=== PATIENT | female | born 1980 | race Caucasian/White ===

== ENCOUNTER 2021-02-02 09:49 | Outpatient (CLI) | payer OTHER, SELFPAY ==
--- NOTE | ~2021-02-02 | XR_ITS ---
XR thoracic spine 2V DATE: 02/02/2021 10:49 INDICATION: History of intervertebral disc displacement in the lumbar region one year ago TECHNIQUE: AP, lateral, swimmer views COMPARISON: None FINDINGS: There is prominent degenerative disc disease at C4-5, C5-6, C6-7. There is mild levoscoliosis of the thoracic spine. There is mild degenerative spurring of the thoracic spine. No fracture or bone destruction of the thoracic spine. The thoracic pedicles are intact. No paraspina l soft tissue thickening. IMPRESSION: Degenerative disc disease of the mid and lower cervical spine Mild degenerative spurring of the thoracic spine Reviewed, dictated and finalized at location A.
--- NOTE | ~2021-02-02 | XR_ITS ---
XR lumbar spine 2-3V DATE: 02/02/2021 10:49 INDICATION: History of intervertebral disc placement, lumbar region one year ago TECHNIQUE: AP, lateral, coned lateral lumbosacral views COMPARISON: 07/10/2014 lumbar spine FINDINGS: There is slight dextroscoliosis. No fracture or bone destruction. The lumbar pedicles are intact. Mild degenerative disease is noted at L2-3 and L3-4. No spondylolisthesis. The sacroiliac joints are intact. IMPRESSION: Slight dextroscoliosis Mild degenerative disc disease from L2-3 and L3-4 Reviewed, dictated and finalized at location A.
== END 2021-02-02 09:50 | disposition home or self-care (01) ==
LOC: CHSIMG 09:52
PROVIDERS: PCP Nurse Practitioner Family; Visit Provider Nurse Practitioner Family
DX: M51.26 Other intervertebral disc displacement, lumbar region (principal); M51.24 Other intervertebral disc displacement, thoracic region
CPT/HCPCS: 72070; 72100

== ENCOUNTER 2022-09-26 10:29 | Outpatient (CLI) | payer OTHER, SELFPAY ==
[2022-09-26 10:39] LABS: Basophils Absolute Auto 0.04 K/mm3 (0.00-0.10); Basophils Percent Auto 0.5 % (0.0-1.0); Eosinophils Absolute Auto 0.06 K/mm3 (0.02-0.50); Eosinophils Percent Auto 0.7 % (1.0-6.0); Hematocrit 43.7 % (35.0-49.0); Hemoglobin 15.2 g/dL (12.0-15.0); Immature Granulocyte Absolute 0.01 K/mm3 (0.00-0.00); Immature Granulocyte Percent A 0.1 % (0.0-0.0); Lymphocytes Absolute Auto 4.26 K/mm3 (1.10-4.50); Lymphocytes Percent Auto 51.6 % (18.0-42.0); Mean Corpuscular HGB Conc 34.8 g/dL (32.0-36.0); Mean Corpuscular Hemoglobin 31.9 pg (27.0-31.0); Mean Corpuscular Volume 91.6 fL (78.0-102.0); Mean Platelet Volume 8.7 fl (9.2-11.8); Monocytes Absolute Auto 0.58 K/mm3 (0.10-0.90); Neutrophils Absolute Auto 3.3 K/mm3 (1.7-7.2); Neutrophils Percent Auto 40.1 % (50.0-70.0); Platelet Count Result 267 K/mm3 (150-420); Red Blood Count 4.77 M/mm3 (4.20-5.40); Red Cell Distribution Width 11.8 % (11.6-14.4); White Blood Count 8.3 K/mm3 (4.8-10.8)
[2022-09-26 11:16] LABS: Alanine Aminotransferase 21 U/L (14-59); Albumin Level 3.9 g/dL (3.4-5.0); Alkaline Phosphatase 60 U/L (46-116); Anion Gap 9 mmol/L (8-16); Aspartate Amino Transferase 17 U/L (15-37); Bilirubin,Total 0.2 mg/dL (0.00-1.00); Blood Urea Nitrogen 9 mg/dL (7-18); Calcium 8.7 mg/dL (8.5-10.1); Carbon Dioxide 27 mmol/L (21-32); Chloride 105 mmol/L (98-108); Estimated Glomerular Filt Rate > 60; Free T4 Free Thyroxine 0.92 ng/dL (0.76-1.46); Glucose 106 mg/dL (70-99); Osmolality Calculated 290 mOsm/kg (285-295); Potassium 3.8 mmol/L (3.5-5.1); Sodium 141 mmol/L (136-145); Thyroid Stimulating Hormone 1.82 uIU/mL (0.36-3.74); Total Protein 7.3 g/dL (6.4-8.2)
[2022-09-26 15:54] LABS: Hemoglobin A1C 5.2 % (<5.7)
== END 2022-09-26 10:30 | disposition home or self-care (01) ==
LOC: CHSLAB 10:30
PROVIDERS: PCP Nurse Practitioner Family; Visit Provider Nurse Practitioner Family
DX: R68.89 Other general symptoms and signs (principal); R63.5 Abnormal weight gain; R73.09 Other abnormal glucose
CPT/HCPCS: 36415; 80053; 83036; 84439; 84443; 85025

== ENCOUNTER 2024-06-02 20:45 | Emergency (ER) | payer OTHER, SELFPAY ==
--- NOTE | ~2024-06-02 | CT_ITS ---
EXAMINATION: CT abdomen pelvis wo con DATE: 06/02/2024 21:43 INDICATION: Left flank pain. TECHNIQUE: Computed tomography (CT) of the abdomen and pelvis was performed without intravenous contr ast. Automated exposure control and iterative reconstruction technique were employed. The dose-length product was 627.74 mGy-cm. COMPARISON: Abdomen ultrasound 09/16/2013 FINDINGS: The visualized portions of lung bases are clear without pneumonia or pleural effusion. The heart size is normal. No pericardial effusion. There is a 5.6 cm mass in right hepatic lobe. The gall bladder, spleen, pancreas, adrenal glands are normal. There is cortical thinning of right kidney. The re are cysts in left kidney measuring up to 2.8 cm. There are two 1 mm stones in left kidney. There a re no dilated loops of bowel. The appendix is normal. There are no pathologically enlarged lymph node s. There is physiologic fluid in the pelvis. There is mild lumbar spondylosis. IMPRESSION: 1. Small nonobstructing left kidney stones. 2. 5.6 cm liver mass, which may be benign or malignant. Abdomen MRI without and with contrast is maulik mmended. Reviewed, dictated and finalized at location A. IMPRESSION: 1. Small nonobstructing left kidney stones. 2. 5.6 cm liver mass, which may be benign or malignant. Abdomen MRI without and with contrast is recommended.
[2024-06-02 20:47] VITALS: BP 135/90; PULSE 83; RESP 18; TEMP 35.9; O2SAT 97
[2024-06-02 21:08] LABS: Add Urine Microscopic? NO; Appearance Urine Clear (Clear); Bilirubin Urine Negative (Negative); Blood Urine Negative (Negative); Color Urine Light Yellow (Yellow); Glucose Urine UA Negative (Negative); Ketones Urine Negative (Negative); Leukocyte Esterase Ur Negative LEU/UL (Negative); Nitrate Urine Negative (Negative); Protein Urine Negative (Negative); pH Urine 6.5 (5.0-8.0)
--- NOTE | 2024-06-02 21:09 | ED.GENADULT ---
HPI - General Adult General Chief complaint: Urogenital-Female Stated complaint: UTI SYMPTOMS History of Present Illness HPI narrative: 42 years old white female came to the emergency room with sudden onset left flank pain, dull aching, started 1-2 hours prior to arrival to the emergency room. Patient denies any fever, chills, nausea, vomiting, radiation of pain. 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 Patient report having history of urinary tract infection at least 3 times in the past with similar presentation. Usually does not have any urinary symptoms except flank pain. Patient is healthy otherwise does not take meds at home. Related Data Allergies Allergy/AdvReac Type Severity Reaction Status Date / Time No Known Allergies Allergy Verified 11/08/23 16:42 Review of Systems Review of Systems: All systems reviewed & are unremarkable except as noted in HPI and below PMFSH Past Medical History Medical History Obesity (BMI 30.0-34.9) Urolithiasis Social History Social History Smoking status: Never smoker Alcohol intake: current Alcohol use details: social Substance use: never Substance use type: does not use Lack of Transportation: No Lack of Food: Never True Current Housing: I Have Housing Concerned About Future Housing: No Difficulty Paying Gas/Electric Bills: No Difficulty Paying for Meds: No Currently Unemployed: No Education: High School Diploma/GED Living arrangements: with family Additional living arrangements comments: Occupation/Education: other Exam Narrative: General appearance: Well-developed, well-nourished Skin: Normal color Head: Normocephalic, nontraumatic Eyes: Clear conjunctiva ENT: Oropharynx normal, ears normal, nose normal Neck: Supple, nontender Chest and respiratory: Airway patent, no respiratory distress, no accessory muscle use Heart: Regular rate/rhythm Abdomen: Soft, nontender, no organomegaly, quiet bowel sounds , mild tenderness left paraspinous muscle , lumbar area, no rash or swelling or bruises Vascular: Normal peripheral pulses, normal capillary refill. Musculoskeletal: Normal range of motion, nontender back Neurologic: Alert and oriented ?3, TENNIS COACH is normal as tested, no gross motor deficit Course Vital Signs Vital signs: Vital Signs Temperature 35.9 C L 06/02/24 20:47 Pulse Rate 83 06/02/24 20:47 Respiratory Rate 18 06/02/24 20:47 Blood Pressure 135/90 06/02/24 20:47 Pulse Oximetry 97 06/02/24 20:47 Oxygen Delivery Room Air 06/02/24 20:47 Temperature 36.1 C L 06/02/24 21:44 Pulse Rate 74 06/02/24 21:44 Respiratory Rate 18 06/02/24 21:44 Blood Pressure 139/91 H 06/02/24 21:44 Pulse Oximetry 74 L 06/02/24 21:44 Oxygen Delivery Room Air 06/02/24 21:44 Medical Decision Making MDM Narrative Medical decision making narrative: differential diagnosis include muscle pain, urinary tract infection Vital Signs Vital Signs: Vital Signs Temperature 35.9 C L 06/02/24 20:47 Pulse Rate 83 06/02/24 20:47 Respiratory Rate 18 06/02/24 20:47 Blood Pressure 135/90 06/02/24 20:47 Pulse Oximetry 97 06/02/24 20:47 Oxygen Delivery Room Air 06/02/24 20:47 Temperature 36.1 C L 06/02/24 21:44 Pulse Rate 74 06/02/24 21:44 Respiratory Rate 18 06/02/24 21:44 Blood Pressure 139/91 H 06/02/24 21:44 Pulse Oximetry 74 L 06/02/24 21:44 Oxygen Delivery Room Air 06/02/24 21:44 Lab Data Labs: Lab Results 06/02/24 Range/Units 20:57 Urine Color Light yellow (Yellow) Urine
--- NOTE | 2024-06-02 21:38 | PC.NURSE ---
PT TO CT VIA XRAY STAFF.
[2024-06-02 21:44] VITALS: BP 139/91; PULSE 74; RESP 18; TEMP 36.1; O2SAT 74
[2024-06-02] MEDS: TAMSULOSIN HCL 0.4 MG CAPSULE PO (22:57)
[2024-06-02] MEDS: IBUPROFEN 600 MG TABLET PO (22:57)
--- NOTE | 2024-06-02 23:51 | PC.NURSE ---
pt resting per cot. informed of length of time for ct scan reading. voiced understanding. call perez in reach.
[2024-06-03 00:24] VITALS: BP 126/92; PULSE 83; RESP 18; TEMP 36.3; O2SAT 97
== END 2024-06-03 00:29 | disposition home or self-care (01) ==
PROVIDERS: Emergency Provider Emergency Medicine; PCP Nurse Practitioner Family
DX: R10.9 Unspecified abdominal pain (principal); R16.0 Hepatomegaly, not elsewhere classified
CPT/HCPCS: 74176; 81003; 99284; A9270

== ENCOUNTER 2024-06-14 10:17 | Outpatient (CLI) | payer OTHER, SELFPAY ==
[2024-06-14 10:38] LABS: Basophils Absolute Auto 0.06 K/mm3 (0.00-0.10); Basophils Percent Auto 1.1 % (0.0-1.0); Eosinophils Percent Auto 1.9 % (1.0-6.0); Hematocrit 45.1 % (35.0-49.0); Hemoglobin 15.6 g/dL (12.0-15.0); Immature Granulocyte Absolute 0.01 K/mm3 (0.00-0.00); Immature Granulocyte Percent A 0.2 % (0.0-0.0); Lymphocytes Absolute Auto 2.87 K/mm3 (1.10-4.50); Lymphocytes Percent Auto 53.1 % (18.0-42.0); Mean Corpuscular HGB Conc 34.6 g/dL (32-36); Mean Corpuscular Hemoglobin 31.7 pg (27.0-31.0); Mean Corpuscular Volume 91.7 fL (78.0-102.0); Mean Platelet Volume 8.6 fl (9.2-11.8); Monocytes Absolute Auto 0.36 K/mm3 (0.10-0.90); Monocytes Percent Auto 6.7 % (2.0-11.0); Platelet Count Result 234 K/mm3 (150-420); Red Blood Count 4.92 M/mm3 (4.20-5.40); Red Cell Distribution Width 11.6 % (11.6-14.4); White Blood Count 5.4 K/mm3 (4.8-10.8)
[2024-06-14 10:52] LABS: INR 0.9
[2024-06-14 11:03] LABS: Alanine Aminotransferase 19 U/L (14-59); Albumin Level 3.9 g/dL (3.4-5.0); Alkaline Phosphatase 60 U/L (46-116); Anion Gap 5 mmol/L (4-12); Aspartate Amino Transferase 15 U/L (15-37); Bilirubin,Total 0.2 mg/dL (0.00-1.00); Blood Urea Nitrogen 15 mg/dL (7-18); Calcium 8.9 mg/dL (8.5-10.1); Carbon Dioxide 31 mmol/L (21-32); Chloride 104 mmol/L (98-108); Cholesterol 164 mg/dL (0-200); Estimated Glomerular Filt Rate > 60; Glucose 92 mg/dL (70-99); HDL Direct 38 mg/dL (40-60); LDL Cholesterol Calculated 105 mg/dL (<130); Osmolality Calculated 290 mOsm/kg (285-295); Sodium 140 mmol/L (136-145); Total Protein 6.9 g/dL (6.4-8.2); Triglycerides 107 mg/dL (0-150)
[2024-06-14 11:38] LABS: Hemoglobin A1C 5.1 % (<5.7)
[2024-06-14 11:44] LABS: Thyroid Stimulating Hormone Reflex 1.15 u/IU/mL (0.36-3.74)
[2024-06-19 08:13] LABS: Hepatitis A Antibody IgM NON-REACTIVE (NON-REACTIVE); Hepatitis B Core Antibody NON-REACTIVE (NON-REACTIVE); Hepatitis B Surface Antigen NON-REACTIVE (NON-REACTIVE); Hepatitis C Virus Antibody NON-REACTIVE (NON-REACTIVE)
== END 2024-06-14 10:18 | disposition home or self-care (01) ==
LOC: CHSLAB 10:19
PROVIDERS: PCP Nurse Practitioner Family; Visit Provider Nurse Practitioner Family
DX: Z00.00 Encounter for general adult medical examination without abnormal findings (principal); R16.0 Hepatomegaly, not elsewhere classified
CPT/HCPCS: 36415; 80053; 80061; 80074; 83036; 84443; 85025; 85610

== ENCOUNTER 2024-12-06 08:43 | Outpatient (CLI) | payer MEDICARE, SELFPAY ==
--- NOTE | ~2024-12-06 | MMUS_ITS ---
EXAMINATION: MM diagnostic [place] BI w kia, US breast BI complete HISTORY: Abnormal tissue seen on recent MRI. TECHNIQUE: Additional 3-D tomosynthesis images of the breasts were performed and synthetic 2-D images were generated. CAD analysis was submitted and interpreted. High resolution bilateral complete breas t ultrasound was performed. COMPARISON: None BREAST PARENCHYMAL COMPOSITION: Dense: The breasts are extremely dense, which lowers the sensitivity of mammography. FINDINGS: MAMMOGRAPHIC FINDINGS: There are multiple masses in both breasts spread throughout the breasts, obscured by dense fibrogland ular tissue. There are no suspicious calcifications or architectural distortion. ULTRASOUND: Complete US of all 4 quadrants of the breast/s and retroareolar region was reviewed. Right breast: At 12:00 near the nipple there is a complex bilobed mass with low level internal echoes within a segment of the mass. The mass measures 2.4 x 1.8 x 1.3 cm. No internal vascularity. There i s posterior acoustic enhancement and parallel orientation. There are multiple cysts of the right naveed st. Left breast: There are multiple cysts of the left breast. No suspicious sonographic abnormalities in the left breast to suggest malignancy. IMPRESSION: 1. Complex partially cystic 2.4 cm right breast mass at 12:00 near the nipple. 2. Recommend ultrasound-guided aspiration. If fluid isn't not obtained with aspiration, recommend bio psy. BI-RADS category 4, suspicious findings. Reviewed, dictated and finalized at location L. ER OPERATOR PIN IMPRESSION: 1. Complex partially cystic 2.4 cm right breast mass at 12:00 near the nipple. 2. Recommend ultrasound-guided aspiration. If fluid isn't not obtained with asp iration, recommend biopsy. BI-RADS category 4, suspicious findings.
--- OUTSIDE RECORDS SUMMARY | 2024-12-06 09:12 | XMS_ITS | Patient Health Summary ---
Author Organization [facility] Address [address] [place] [address] Care Team Providers Care Actuarial Mathematician Name Role Phone Unavailable Primary Care Provider Unavailabl e Note from [facility],non-owned Affiliates and Associated Physician Practices is amultiple site organization consisting of ambulatory clinics and hospital sitesin [place], [place], [place] and [place]. This disclosure is being madepursuant to the Care Everywhere program and may not contain all information available regarding this patient. Last updated 18.[facility] Accredible Social History Tobacco Use Types Packs/Day Years Used Date Smoking Tobacco: Never Assessed Sex and Gender Information Value Date Recorded Sex Assigned at Not on file Gender Identity Not on file Sexual Orientation Not on file Procedures * IMAGING/RADIOLOGY/XRAY RESULTS ORDER(Performed 09/02/2009) Results * IMAGING/RADIOLOGY/XRAY RESULTS ORDER (09/02/2009 1:16 AM FLOOR STEWARD/STEWARDESS) Anatomical Region Laterality Modality Other Narrative 09/02/2009 1:16 AM FLOOR STEWARD/STEWARDESS Ordered by an unspecified provider. Transcriptions Document, Scanned - 08/25/2009 12:00 AM FLOOR STEWARD/STEWARDESS Scanned Document IMAGING
--- OUTSIDE RECORDS SUMMARY | 2024-12-06 09:12 | XMS_ITS | Referral Summary ---
Author Organization [facility] Address [address] [place] [address] Care Team Providers Care Washer Meat Name Role Phone Unavailable Primary Care Provider Unavailabl e Source Comments [facility],non-owned Affiliates and Associated Physician Practices is amultiple site organization consisting of ambulatory clinics and hospital sitesin [place], [place] and [place]. This disclosure is being madepursuant to the Care Everywhere program and may not contain all information available regarding this patient. Last updated 18.[facility] Social History Tobacco Use Types Packs/Day Years Used Date Smoking Tobacco: Never Assessed Sex and Gender Information Value Date Recorded Sex Assigned at Not on file Gender Identity Not on file Sexual Orientation Not on file Plan of Treatment Not on file
--- OUTSIDE RECORDS SUMMARY | 2024-12-06 09:12 | XMS_ITS | Clinical Summary ---
Author Organization [facility] Address [address] [place] [id number] Care Team Providers Care Pedicurist Name Role Phone Nickolas, Alana Genao NP Primary Care Provide r Allergies No known active allergies Medications No known medications Active Problems No known active problems Encounters Date Type Department Care Team Description 11/20/2024 Telephone [facility] Gastroenterology at [address] [place] [address] Kate Huddleston MA 11/14/2024 8:43 AM BOILER CONTROL TECHNICIAN - 11/14/2024 11:59 PM BOILER CONTROL TECHNICIAN Hospital Encounter [facility] [address] [place] [address] Liver lesion; Hepatomegaly Discharge Disposition: Discharge to home or self care 11/06/2024 Telephone [facility] Gastroenterology at [address] [place] [address] Kate Huddleston MA 11/05/2024 2:30 PM BOILER CONTROL TECHNICIAN Lab [address] Hepatomegaly; Liver lesion 11/05/2024 1:45 PM BOILER CONTROL TECHNICIAN Office Visit [facility] Gastroenterology at [address] [place] [address] Saumya Craft PA Liver lesion (Primary Dx); Hepatomegaly; Colon cancer screening from Last 3 Months Social History Tobacco Use Types Packs/Day Years Used Date Smoking Tobacco: Never Smokeless Tobacco: Never Tobacco Cessation:Counseling Given: Not Answered Comments Unknown Sex and Gender Information Value Date Recorded Sex Assigned at Not on file Legal Sex Female 2:12 PM CDT Gender Identity Not on file Sexual Orientation Not on file Obstetrics History Last Filed Vital Signs Vital Sign Reading Time Taken Comments Blood Pressure 130/87 11/05/2024 1:14 PM BOILER CONTROL TECHNICIAN Pulse 81 11/05/2024 1:14 PM BOILER CONTROL TECHNICIAN Temperature - - Respiratory Rate - - Oxygen Saturation 97% 11/05/2024 1:14 PM BOILER CONTROL TECHNICIAN Inhaled Oxygen Concentration - - Weight 88 kg (194 lb) 11/05/2024 1:14 PM BOILER CONTROL TECHNICIAN Height - - Body Mass Index - - Plan of Treatment Health Maintenance Due Date Last Done Comments Breast Cancer Screening-Mammogram 1979 Cervical Cancer Screening 1979 Colon Cancer Screening-Colonoscopy 1979 Depression Screening 1979 DTaP/Tdap/Td Vaccine (1 - Tdap) 1990 Hepatitis B Screening 1997 Regular Well Visit/Exam 18-64 1997 Influenza Vaccine (#1) 2024 Hepatitis C Screening Completed 11/05/2024 HPV Vaccines Aged Out No longer eligi ble based on patient's age to complete this topic Pneumococcal vaccine <65 Aged Out No longer eligible based on patient's age to complete this topic Procedures Procedure Name Priority Date/Time Associated Diagnosis Comments MRI ABDOMEN LIVER W WO CONTRAST Schedule ROJELIO, Read Routine (Patient lives out of area) 11/14/2024 9:29 AM BOILER CONTROL TECHNICIAN Liver lesion Hepatomegaly [id number] IN, TUMOR MARKER Routine 11/05/2024 1:57 PM BOILER CONTROL TECHNICIAN Hepatomegaly Liver lesion CEA Routine 11/05/2024 1:57 PM BOILER CONTROL TECHNICIAN Hepatomegaly Liver lesion CANCER ANTIGEN 19-9 Routine 11/05/2024 1:57 PM BOILER CONTROL TECHNICIAN Hepatomegaly Liver lesion CA 125 Routine 11/05/2024 1:57 PM BOILER CONTROL TECHNICIAN Hepatomegaly Liver lesion HEPATIC FUNCTION PANEL Routine 11/05/2024 1:57 PM BOILER CONTROL TECHNICIAN Hepatomegaly Liver lesion HEPATITIS PANEL, ACUTE Routine 11/05/2024 1:57 PM BOILER CONTROL TECHNICIAN Hepatomegaly Liver lesion from Last 3 Months Results * MRI Abdomen Liver W WO Contrast (11/14/2024 9:29 AM BOILER CONTROL TECHNICIAN) Anatomical Region Laterality Modality Body N/A Magnetic Resonan ce 11/14/2024 9:45 AM BOILER CONTROL TECHNICIAN Narrative 11/14/2024 10:00 AM BOILER CONTROL TECHNICIAN EXAM DESCRIPTION: MRI ABDOMEN LIVER W WO CONTRAST REASON FOR STUDY: liver lesion on CT Recent CT abdomen/pelvis without contrast noted a 5.6cm lesion in liver as well as hepatomegaly. Patient was having back pain and headaches. She states that she was also having periods of low temperature with sweats and nighttime sweats where she wakes up in the middle of the night. She was having episodes of nausea with vomiting but this has resolved. She has also mention mass/cysts were recently found in her breast. TECHNIQUE: MRI of the abdomen performed without and with intravenous contrast according to the liver protocol. All images stored on PACS. 3D MIP images rendered on scanning unit and reviewed at time of interpretation. CONTRAST TYPE/DOSE: 18mL of GADOTERATE MEGLUMINE 0.5 MMOL/ML INTRAVENOUS SOLUTION (SO) injected via intravenous COMPARISON: None FINDINGS: LOWER CHEST: Numerous bilateral cystic structures within the bilateral breasts, the largest of which measures approximately 2.8 x 2.4 cm in the left breast (4; 3). LIVER: No significant fat or iron deposition. Lobulated T2 hyperintense, T1 hypointense lesion within hepatic segment 7 measures 5.2 x 4.1 cm (11; 39). Lesion demonstrates peripheral nodular discontinuous enhancement with progressive fill in on delayed venous imaging compatible with a hemangioma. Additional punctate and small T2 hyperintensities which may reflect small stenosis or hemangiomas. No definite concerning lesion. No morphologic changes of chronic liver disease. GALLBLADDER/BILE DUCTS: No significant biliary ductal dilatation. SPLEEN: No significant abnormality. PANCREAS: No significant ductal dilatation or discrete lesion. ADRENALS: No measurable nodule. KIDNEYS/URETERS: Renal cysts. Punctate T1 hyperintensity within the left inferior renal pole likely reflects a proteinaceous/hemorrhagic cyst (11; 75). No hydronephrosis. Focal renal cortical scarring of the lateral right inferior renal pole versus small angiomyolipoma measuring approximately 1.2 cm (such as 15; 44). GASTROINTESTINAL: No obstruction or significant wall thickening of the visualized bowel. Normal-appearing appendix (15; 30). LYMPH NODES: No pathologically enlarged lymphadenopathy. PERITONEUM/RETROPERITONEUM: No signficant ascites. VASCULATURE: No abdominal aortic aneurysm. MUSCULOSKELETAL: Mild multilevel degenerative changes of the visualized spine. No aggressive appearing enhancing osseous lesions. OTHER: No significant abnormality. IMPRESSION: Hepatic segment 7 lesion compatible with a hemangioma. Numerous bilateral breast cystic structures, likely benign. Recommend correlation with physical examination and dedicated breast imaging as clinically appropriate. Incidental and chronic findings as above. THIS IS AN ELECTRONICALLY VERIFIED FINAL REPORT 11/14/2024 10:00 AM - Electronically signed by Josh Granados M.D. NS: NS Report ID: [id number] Reading Location: [id number] Procedure Note Josh Granados MD - 11/14/2024 EXAM DESCRIPTION: MRI ABDOMEN LIVER W WO CONTRAST REASON FOR STUDY: liver lesion on CT Recent CT abdomen/pelvis without contrast noted a 5.6cm lesion in liver as well as hepatomegaly. Patient was having back pain and headaches. Shestates that she was also having periods of low temperature with sweats andnighttime sweats where she wakes up in the middle of the night. She was having episodes of nausea with vomiting but this has resolved. She has alsomention mass/cysts were recently found in her breast. TECHNIQUE: MRI of the abdomen performed without and with intravenous contrast according to the liver protocol. All images stored on PACS.3D MIP images rendered on scanning unit and reviewed at time ofinterpretation. CONTRAST TYPE/DOSE: 18mL of GADOTERATE MEGLUMINE 0.5 MMOL/ML INTRAVENOUS SOLUTION (SO) injected via intravenous COMPARISON: None FINDINGS: LOWER CHEST: Numerous bilateral cystic structures within the bilateral breasts, the largest of which measures approximately 2.8 x 2.4 cm in theleft breast (4; 3). LIVER: No significant fat or iron deposition. Lobulated T2 hyperintense,T1 hypointense lesion within hepatic segment 7 measures 5.2 x 4.1 cm (11;39). Lesion demonstrates peripheral nodular discontinuous enhancement with progressive fill in on delayed venous imaging compatible with ahemangioma. Additional punctate and small T2 hyperintensities which may reflect small stenosis or hemangiomas. No definite concerning lesion. No morphologic changes of chronic liver disease. GALLBLADDER/BILE DUCTS: No significant biliary ductal dilatation. SPLEEN: No significant abnormality. PANCREAS: No significant ductal dilatation or discrete lesion. ADRENALS: No measurable nodule. KIDNEYS/URETERS: Renal cysts. Punctate T1 hyperintensity within the left inferior renal pole likely reflects a proteinaceous/hemorrhagic cyst (11;75). No hydronephrosis. Focal renal cortical scarring of the lateral right inferior renal pole versus small angiomyolipoma measuring approximately1.2 cm (such as 15; 44). GASTROINTESTINAL: No obstruction or significant wall thickening of the visualized bowel. Normal-appearing appendix (15; 30). LYMPH NODES: No pathologically enlarged lymphadenopathy. PERITONEUM/RETROPERITONEUM: No signficant ascites. VASCULATURE: No abdominal aortic aneurysm. MUSCULOSKELETAL: Mild multilevel degenerative changes of the visualized spine. No aggressive appearing enhancing osseous lesions. OTHER: No significant abnormality. IMPRESSION: Hepatic segment 7 lesion compatible with a hemangioma. Numerous bilateral breast cystic structures, likely benign. Recommend correlation with physical examination and dedicated breast imaging as clinically appropriate. Incidental and chronic findings as above. THIS IS AN ELECTRONICALLY VERIFIED FINAL REPORT 11/14/2024 10:00 AM - Electronically signed by Josh Granados M.D. NS: NS Report ID: [id number] Reading Location: [place] [id number] [place] Saumya NESS IMG MRI PROCEDURES Final Result * Cancer antigen 19-9 (11/05/2024 1:57 PM BOILER CONTROL TECHNICIAN) CA 19-9 ag 19.0 1.0 - 35.0 units/mL Comment: Interpretive Data The Sindi CA 19-9 assay procedure was used. Results from different manufacturers or methods may not be comparable. Serial testing should be performed using the same method. Testing performed by: [facility], [address] [place] [address]., [id number] Blood 11/05/2024 1:57 PM BOILER CONTROL TECHNICIAN 11/05/2024 7:50 PM BOILER CONTROL TECHNICIAN us Saumya NESS LAB BLOOD ORDERABLES Fin al Result Performing Organization Address [facility] de Phone Number [facility] ([place]) 1 [facility] [place] [address] * [id number], Tumor Marker (11/05/2024 1:57 PM BOILER CONTROL TECHNICIAN) alpha Fetoprotein <2.0 <=8.3 ng/mL Comment: Interpretive Data The Sindi AFP assay procedure was used. Results from different manufacturers or methods may not be comparable. Serial testing should be performed using the same method. 0-1 month. AFP concentrations may reach or exceed 100,000 ng/mL after depending on gestational age and weight. 1-3 months 50 1000 ng/ml 3-6 months 10 500 ng/ml 6-12 months 3.0 100 ng/ml >1 year 0.0 8.3 ng/ml References Jessica Y. et al. J. Ped Surg 1978;13:155-156 Tamia Pacheco. et al. Clin Chem Lab Med 2018;57:783-797 Sammie Boothe et al. Clin Chem 2014;6360-1583. Current interpretive data was last revised 2022. Testing performed by: [facility], [address] [place] [address]., [id number] Blood 11/05/2024 1:57 PM BOILER CONTROL TECHNICIAN 11/05/2024 5:44 PM BOILER CONTROL TECHNICIAN Saumya NESS LAB BLOOD ORDERABLES Fin al Result Performing Organization Address City/[facility] Co de Phone Number [facility] ([place]) 1 [facility] [place] [address] * Hepatitis panel, acute Blood (11/05/2024 1:57 PM BOILER CONTROL TECHNICIAN) Pathologist [facility] Hep A IgM Nonreactive Nonreactive Comment: Interpretive Data: If Hep A IgM Ab is reported as Equivocal, a new sample should be drawn in two weeks for testing. Current interpretive data was last revised on 20. Testing performed by: [facility], [address] [place] [address]., [id number] Hep B core IgM Nonreactive Nonreactive C [facility] ([place]) Comment: Interpretive Data If HepB Core IgM Ab is reported as Equivocal, a new sample should be drawn in two weeks for testing. Current interpretive data was last revised on 20. Testing performed by: [facility], [address] [place] [address]., [id number] Hep C Ab Nonreactive Nonreactive [facility] ([place]) Comment: Interpretive Data Nonreactive: Antibodies to HCV not detected. Does NOT exclude the possibility of recent exposure to HCV. Equivocal: Equivocal for HCV antibodies. Supplemental molecular testing will be automatically performed to determine infection status in accordance with current CDC screening recommendations. Reactive: Positive for HCV antibodies. This may represent current or past HCV infection. Supplemental molecular testing will be automatically performed to determine current infection status in accordance with current CDC screening recommendations. Interpretive data was last revised on 2020. Testing performed by: [facility], [address] [place] [address]., [id number] HepBsAg Nonreactive Nonreactive [facility] ([place]) Comment:Testing performed by : [address] [id number] Blood 11/05/2024 1:57 PM BOILER CONTROL TECHNICIAN 11/05/2024 7:50 PM BOILER CONTROL TECHNICIAN Saumya NESS LAB MICROBIOLOGY - GENER AL ORDERABLES Final Result [facility] ([place]) 1 [facility] Department [place] [address] * CA 125 (11/05/2024 1:57 PM BOILER CONTROL TECHNICIAN) CA 125 ag 17.0 1.0 - 35.0 units/mL Comment: Interpretive Data The Sindi CA 125 assay procedure was used. Results from different manufacturers or methods may not be comparable. Serial testing should be performed using the same method. Testing performed by: [address] [id number] Blood 11/05/2024 1:57 PM BOILER CONTROL TECHNICIAN 11/05/2024 7:50 PM BOILER CONTROL TECHNICIAN Saumya NESS LAB BLOOD ORDERABLES Fin al Result Performing Organization Address [facility] de Phone Number [facility] ([place]) 1 [facility] [place] [address] * CEA (11/05/2024 1:57 PM BOILER CONTROL TECHNICIAN) Pathologist [facility] CEA 1.6 0.1 - 5.0 ng/mL Comment: Interpretive Data The Sindi CEA assay procedure was used. Results from different manufacturers or methods may not be comparable. Serial testing should be performed using the same method. Testing performed by: [facility], [address] [place] [address]., [id number] Blood 11/05/2024 1:57 PM BOILER CONTROL TECHNICIAN 11/05/2024 7:50 PM BOILER CONTROL TECHNICIAN Saumya NESS LAB BLOOD ORDERABLES Fin al Result Performing Organization Address [facility] de Phone Number [facility] ([place]) 1 [facility] [place] [address] * Hepatic function panel (11/05/2024 1:57 PM BOILER CONTROL TECHNICIAN) Pathologist [facility] Bilirubin, total 0.3 0.1 - 1.2 mg/dL Bilirubin, direct <0.1 0.1 - 0.3 mg/dL [facility] ([place]) Protein, pl 7.3 6.5 - 8.5 g/dL [facility] ([place]) Albumin 4.4 3.5 - 5.0 g/dL [facility] ([place]) Alk phos 58 40 - 130 Units/L [facility] ([place]) ALT 9 7 - 45 Units/L [facility] ([place]) AST 18 10 - 45 Units/L [facility] ([place]) Blood 11/05/2024 1:57 PM BOILER CONTROL TECHNICIAN 11/05/2024 3:34 PM BOILER CONTROL TECHNICIAN Saumya NESS LAB BLOOD ORDERABLES Fin al Result Performing Organization Address [facility]/State/[facility] Co de Phone Number [facility] ([place]) 1 [facility] [place] [address] from Last 3 Months Insurance [facility] [facility] Care Teams Pedicurist Relationship Specialty Start Date End Date Alana Olmos NP [address] [place] [address] PCP - General Nurse Practitioner 02/20/21
--- OUTSIDE RECORDS SUMMARY | 2024-12-06 09:12 | XMS_ITS | Clinical Summary ---
Author Organization [facility] Tagged Address [address] [place] [address] Care Team Providers Care Service Writer Advisor Name Role Phone Unavailable Primary Care Provider Unavailabl e Source Comments [facility],non-owned Affiliates and Associated Physician Practices is amultiple site organization consisting of ambulatory clinics and hospital sitesin [place], [place], [place] and [place]. This disclosure is being madepursuant to the Care Everywhere program and may not contain all information available regarding this patient. Last updated 18.[facility] Tagged Social History Tobacco Use Types Packs/Day Years Used Date Smoking Tobacco: Never Assessed Sex and Gender Information Value Date Recorded Sex Assigned at Not on file Gender Identity Not on file Sexual Orientation Not on file Plan of Treatment Health Maintenance Due Date Last Done Comments COLOGUARD (AGES 45-75) - COL ON CA SCREENING 1979 COLON MONITORING 1979 COLONOSCOPY - COLON CA SCREENING 1979 CT COLONOGRAPHY - COLON CA SCREENING 1979 Colorectal Cancer Screening 1979 FIT - COLON CA SCREENING 1979 FLEX SIG - COLON CA SCREENING 1979 LIPID TESTING 1979 MAMMOGRAM 1979 PAP SMEAR 1979 HIV SCREENING 1994 HEPATITIS C SCREENING 04/12/1997 DTAP/TDAP/TD VACCINES (1 - Tdap) 1998 HEPATITIS B VACCINE (1 of 3 - 19+ 3-dose series) 1998 COVID-19 VACCINE (2023-2 5 season) 2024 INFLUENZA VACCINE (#1) 2024 DEPRESSION SCREENING 10/16/2024 ZOSTER VACCINE (1 of 2) 2029 HIB VACCINE Aged Out No longer eligi ble based on patient's age to complete this topic HPV VACCINE Aged Out No longer eligi ble based on patient's age to complete this topic MENINGOCOCCAL (Group B) VACCINE Aged Out No longer eligible based on patient's age to complete this topic MENINGOCOCCAL VACCINE Aged Out No lukas faye eligible based on patient's age to complete this topic PNEUMOCOCCAL VACCINE Aged Out No long er eligible based on patient's age to complete this topic
--- OUTSIDE RECORDS SUMMARY | 2024-12-06 09:12 | XMS_ITS | Referral Summary ---
Author Organization [facility] Address [address] [place] [phone] Care Team Providers Care Guide Tour Name Role Phone NickolasAlana NP Primary Care Provide r Encounters Date Type Department Care Team Description 11/20/2024 Telephone [facility] Gastroenterology at [address] [place] [address] Kate Huddleston MA 11/14/2024 8:43 AM DIET KITCHEN COOK - 11/14/2024 11:59 PM DIET KITCHEN COOK Hospital Encounter [facility] 1 [place] [address] Liver lesion; Hepatomegaly Discharge Disposition: Discharge to home or self care 11/06/2024 Telephone [facility] Gastroenterology at [address] [place] [address] Kate Huddleston MA 11/05/2024 2:30 PM DIET KITCHEN COOK Lab [address] Hepatomegaly; Liver lesion 11/05/2024 1:45 PM DIET KITCHEN COOK Office Visit [facility] Gastroenterology at [address] [place] [address] Saumya Craft PA Liver lesion (Primary Dx); Hepatomegaly; Colon cancer screening from Last 3 Months Allergies No known active allergies Medications No known medications Active Problems No known active problems Social History Tobacco Use Types Packs/Day Years Used Date Smoking Tobacco: Never Smokeless Tobacco: Never Tobacco Cessation:Counseling Given: Not Answered Comments Unknown Sex and Gender Information Value Date Recorded Sex Assigned at Not on file Legal Sex Female 2:12 PM CDT Gender Identity Not on file Sexual Orientation Not on file Last Filed Vital Signs Vital Sign Reading Time Taken Comments Blood Pressure 130/87 11/05/2024 1:14 PM DIET KITCHEN COOK Pulse 81 11/05/2024 1:14 PM DIET KITCHEN COOK Temperature - - Respiratory Rate - - Oxygen Saturation 97% 11/05/2024 1:14 PM DIET KITCHEN COOK Inhaled Oxygen Concentration - - Weight 88 kg (194 lb) 11/05/2024 1:14 PM DIET KITCHEN COOK Height - - Body Mass Index - - Plan of Treatment Not on file Procedures Procedure Name Priority Date/Time Associated Diagnosis Comments MRI ABDOMEN LIVER W WO CONTRAST Schedule ROJELIO, Read Routine (Patient lives out of area) 11/14/2024 9:29 AM DIET KITCHEN COOK Liver lesion Hepatomegaly [id number] IN, TUMOR MARKER Routine 11/05/2024 1:57 PM DIET KITCHEN COOK Hepatomegaly Liver lesion CEA Routine 11/05/2024 1:57 PM DIET KITCHEN COOK Hepatomegaly Liver lesion CANCER ANTIGEN 19-9 Routine 11/05/2024 1:57 PM DIET KITCHEN COOK Hepatomegaly Liver lesion CA 125 Routine 11/05/2024 1:57 PM DIET KITCHEN COOK Hepatomegaly Liver lesion HEPATIC FUNCTION PANEL Routine 11/05/2024 1:57 PM DIET KITCHEN COOK Hepatomegaly Liver lesion HEPATITIS PANEL, ACUTE Routine 11/05/2024 1:57 PM DIET KITCHEN COOK Hepatomegaly Liver lesion from Last 3 Months Results * MRI Abdomen Liver W WO Contrast (11/14/2024 9:29 AM DIET KITCHEN COOK) Anatomical Region Laterality Modality Body N/A Magnetic Resonan ce 11/14/2024 9:45 AM DIET KITCHEN COOK Narrative 11/14/2024 10:00 AM DIET KITCHEN COOK EXAM DESCRIPTION: MRI ABDOMEN LIVER W WO [...] 10:00 AM - Electronically signed by Josh Allen.D. NS: NS Report ID: [id number] Reading Location: [id number] Procedure Note Josh Granados MD - 11/14/2024 [...] Josh Granados M.D. NS: NS Report ID: [id number] Reading Location: [place] [address] Saumya NESS IMG MRI PROCEDURES Final Result * Cancer antigen 19-9 (11/05/2024 1:57 PM DIET KITCHEN COOK) Pathologist [facility] [place] CA 19-9 ag 19.0 1.0 - 35.0 units/mL Comment: Interpretive Data The Sindi CA 19-9 assay procedure was used. Results from different manufacturers or methods may not be comparable. Serial testing should be performed using the same method. Testing performed by: [facility], [address] [place] [address]., [id number] Blood 11/05/2024 1:57 PM DIET KITCHEN COOK 11/05/2024 7:50 PM DIET KITCHEN COOK Saumya NESS LAB BLOOD ORDERABLES Fin al Result [facility] [place] 1 [facility] [place] [employer] [place] [address] * [id number], Tumor Marker (11/05/2024 1:57 PM DIET KITCHEN COOK) Pathologist [facility] [place] alpha Fetoprotein <2.0 <=8.3 ng/mL Comment: Interpretive [...] >1 year 0.0 8.3 ng/ml References Jessica Monroe al. J. Ped Surg 1978;13:155-156 Tamia Luke et al. Clin Chem Lab Med 2018;57:783-797 Sammie Boothe et al. Clin Chem 2014;8338-4323. Current interpretive data was last revised 2022. Testing performed by: [facility], 1 [place]., [address] Blood 11/05/2024 1:57 PM DIET KITCHEN COOK 11/05/2024 5:44 PM DIET KITCHEN COOK Saumya NESS LAB BLOOD ORDERABLES Fin al Result [facility] ([place]) 1 [facility] Department [place] [address] * Hepatitis panel, acute Blood (11/05/2024 1:57 PM DIET KITCHEN COOK) Hep A IgM Nonreactive Nonreactive Comment: Interpretive Data: If Hep A IgM Ab is reported as Equivocal, a new sample should be drawn in two weeks for testing. Current interpretive data was last revised on 20. Testing performed by: [facility], [address] [place] [address]., [id number] Hep B core IgM Nonreactive Nonreactive Erica [facility] ([place]) Comment: Interpretive Data If HepB Core IgM Ab is reported as Equivocal, a new sample should be drawn in two weeks for testing. Current interpretive data was last revised on 20. Testing performed by: [facility], [address] [place] [address]., [id number] Hep C Ab Nonreactive Nonreactive [facility] [...] last revised on 2020. Testing performed by: [facility], [address] [place] [address]., [address] HepBsAg Nonreactive Nonreactive [facility] ([place]) Comment:Testing performed by : [facility], [address] [place] [address]., [id number] Blood 11/05/2024 1:57 PM DIET KITCHEN COOK 11/05/2024 7:50 PM DIET KITCHEN COOK Saumya NESS LAB MICROBIOLOGY - GENER AL ORDERABLES Final Result Performing Organization Address [facility] Co de Phone Number [facility] ([place]) 1 [facility] [place] [address] * CA 125 (11/05/2024 1:57 PM DIET KITCHEN COOK) CA 125 ag 17.0 1.0 - 35.0 units/mL Comment: Interpretive Data The Sindi CA 125 assay procedure was used. Results from different manufacturers or methods may not be comparable. Serial testing should be performed using the same method. Testing performed by: [address] [address] Blood 11/05/2024 1:57 PM DIET KITCHEN COOK 11/05/2024 7:50 PM DIET KITCHEN COOK Saumya NESS LAB BLOOD ORDERABLES Fin al Result Performing Organization Address City/[facility] Co de Phone Number [facility] ([place]) 1 [facility] [place] [address] * CEA (11/05/2024 1:57 PM DIET KITCHEN COOK) CEA 1.6 0.1 - 5.0 ng/mL Comment: Interpretive Data The Sindi CEA assay procedure was used. Results from different manufacturers or methods may not be comparable. Serial testing should be performed using the same method. Testing performed by: [facility], [address] [place] [address], [place]., [address] Blood 11/05/2024 1:57 PM DIET KITCHEN COOK 11/05/2024 7:50 PM DIET KITCHEN COOK Saumya NESS LAB BLOOD ORDERABLES Fin al Result Performing Organization Address [facility]/ZIP Co de Phone Number [facility] ([place]) 1 [facility] [place] [address] * Hepatic function panel (11/05/2024 1:57 PM DIET KITCHEN COOK) Bilirubin, total 0.3 0.1 - 1.2 mg/dL [...] [facility] ([place]) Blood 11/05/2024 1:57 PM DIET KITCHEN COOK 11/05/2024 3:34 PM DIET KITCHEN COOK Saumya NESS LAB BLOOD ORDERABLES Fin al Result Performing Organization Address [facility] Co de Phone Number [facility] ([place]) 1 [facility] [place] [address] from Last 3 Months Insurance AETNA [facility] Care Teams Guide Tour Relationship Specialty Start Date End Date Alana Olmos NP [address] [place] [address] PCP - General Nurse Practitioner 02/20/21
== END 2024-12-06 08:44 | disposition home or self-care (01) ==
LOC: CHSIMG 08:46
PROVIDERS: PCP Nurse Practitioner Family; Visit Provider Nurse Practitioner Family
DX: R92.8 Other abnormal and inconclusive findings on diagnostic imaging of breast (principal)
CPT/HCPCS: 76641; 77062; 77066; G0279

== ENCOUNTER 2024-12-26 07:53 | Outpatient (CLI) | payer OTHER, SELFPAY ==
--- NOTE | ~2024-12-26 | US_ITS ---
EXAMINATION: US_BCARIMG_US DATE: 12/26/2024 12:27 CDT INDICATION: Palpable, painful abnormality within the right breast TECHNIQUE: Survey imaging of the right breast was performed. The cyst(s) at the 12:00 position were targeted for aspiration. The procedure and its risk and benefits were discussed with the patient. Ri sks included but were not limited to pain, bleeding and infection. The patient verbalized understand ing and provided written consent. A time-out was performed to document the patient's name, date of , and site of procedure. The u pper quadrant quadrant of the patient's right breast was prepped and draped in usual sterile fashion. 1% lidocaine was used for local anesthesia. Utilizing ultrasound guidance, a 18-gauge needle was a dvanced into the lesion in the right breast. Aspiration was performed. The patient tolerated procedure without immediate complication. Sterile bandages were applied over t he aspiration site. FINDINGS: Technically successful breast cyst aspiration in its entirety, as detailed above. IMPRESSION: Technically successful right breast cyst aspiration to full decompression, as detailed above. Cytology pending Reviewed, dictated and finalized at location A. IMPRESSION: Technically successful right breast cyst aspiration to full decompression, as d etailed above. Cytology pending
--- OUTSIDE RECORDS SUMMARY | 2024-12-26 08:04 | XMS_ITS | Clinical Summary ---
Author Organization [facility] [employer] Address [address] [place] [address] Care Team Providers Care Shop Clerk Name Role Phone Unavailable Primary Care Provider Unavailabl e Source Comments [facility],non-owned Affiliates and Associated Physician Practices is amultiple site organization consisting of ambulatory clinics and hospital sitesin [place], [place], [place] and [place]. This disclosure is being madepursuant to the Care Everywhere program and may not contain all information available regarding this patient. Last updated 18.[facility] Social History Tobacco Use Types Packs/Day Years [...] to complete this topic MENINGOCOCCAL (Group B) VACC INE SHARED DECISION-MAKING Aged Out No longer eligibl e based on patient's age to complete this topic MENINGOCOCCAL GROUPS A/C/Y/W VACCINE Aged Out No longer eligible b ased on patient's age to complete this topic PNEUMOCOCCAL VACCINE Aged Out No long er eligible based on patient's age to complete this topic
--- OUTSIDE RECORDS SUMMARY | 2024-12-26 08:04 | XMS_ITS | Referral Summary ---
Author Organization [facility] Address [address] [facility] [place] [address] Care Team Providers Care English Composition Teacher Name Role Phone Unavailable Primary Care Provider Unavailabl e Source Comments [facility],non-owned Affiliates and Associated Physician Practices is amultiple site organization consisting of ambulatory clinics and hospital sitesin [place], [place], [place] and [place]. This disclosure is being madepursuant to the Care Everywhere program and may not contain all information available regarding this patient. Last updated 18.[facility] Social History Tobacco Use Types Packs/Day Years Used Date Smoking Tobacco: Never Assessed Sex and Gender Information Value Date Recorded Sex Assigned at Not on file Gender Identity Not on file Sexual Orientation Not on file Plan of Treatment Not on file
--- OUTSIDE RECORDS SUMMARY | 2024-12-26 08:05 | XMS_ITS | Patient Health Summary ---
Author Organization [facility] Address [address] [place] [address] Care Team Providers Care Field Naturalist Name Role Phone Unavailable Primary Care Provider Unavailabl e Note from [facility],non-owned Affiliates and Associated Physician Practices is amultiple site organization consisting of ambulatory clinics and hospital sitesin [place], [place], [place] and [place]. This disclosure is being madepursuant to the Care Everywhere program and may not contain all information available regarding this patient. Last updated 18.[facility] Social History Tobacco Use Types Packs/Day Years Used Date Smoking Tobacco: Never Assessed Sex and Gender Information Value Date Recorded Sex Assigned at Not on file Gender Identity Not on file Sexual Orientation Not on file Procedures * IMAGING/RADIOLOGY/XRAY RESULTS ORDER(Performed 09/02/2009) Results * IMAGING/RADIOLOGY/XRAY RESULTS ORDER (09/02/2009 1:16 AM TRANSITIONAL STUDIES INSTRUCTOR) Anatomical Region Laterality Modality Other Narrative 09/02/2009 1:16 AM TRANSITIONAL STUDIES INSTRUCTOR Ordered by an unspecified provider. Transcriptions Document, Scanned - 08/25/2009 12:00 AM TRANSITIONAL STUDIES INSTRUCTOR Scanned Document IMAGING
--- OUTSIDE RECORDS SUMMARY | 2024-12-26 08:05 | XMS_ITS | Referral Summary ---
Author Organization [facility] Address [address] [place] [phone] Care Team Providers Care Senior Front End Developer Name Role Phone NickolasAlana NP Primary Care Provide r Encounters Date Type Department Care Team Description 11/20/2024 Telephone [facility] Gastroenterology at [address] [place] [address] [place] [address] Kate Huddleston MA 11/14/2024 8:43 AM DEVELOPMENT AND HOUSING DIRECTOR - 11/14/2024 11:59 PM DEVELOPMENT AND HOUSING DIRECTOR Hospital Encounter [facility] 1 [place] [address] Liver lesion; Hepatomegaly Discharge Disposition: Discharge to home or self care 11/06/2024 Telephone [facility] Gastroenterology at [address] [place] [address] [place] [address] Kate Huddleston MA 11/05/2024 2:30 PM DEVELOPMENT AND HOUSING DIRECTOR Lab [address] Hepatomegaly; Liver lesion 11/05/2024 1:45 PM DEVELOPMENT AND HOUSING DIRECTOR Office Visit [facility] Gastroenterology at [address] [place] [address] [place] [address] Saumya Craft PA Liver lesion (Primary Dx); [...] Comments Blood Pressure 130/87 11/05/2024 1:14 PM DEVELOPMENT AND HOUSING DIRECTOR Pulse 81 11/05/2024 1:14 PM DEVELOPMENT AND HOUSING DIRECTOR Temperature - - Respiratory Rate - - Oxygen Saturation 97% 11/05/2024 1:14 PM DEVELOPMENT AND HOUSING DIRECTOR Inhaled Oxygen Concentration - - Weight 88 kg (194 lb) 11/05/2024 1:14 PM DEVELOPMENT AND HOUSING DIRECTOR Height - - Body Mass Index - - Plan of Treatment Not on file Procedures Procedure Name Priority Date/Time Associated Diagnosis Comments MRI ABDOMEN LIVER W WO CONTRAST Schedule ROJELIO, Read Routine (Patient lives out of area) 11/14/2024 9:29 AM DEVELOPMENT AND HOUSING DIRECTOR Liver lesion Hepatomegaly [id number] IN, TUMOR MARKER Routine 11/05/2024 1:57 PM DEVELOPMENT AND HOUSING DIRECTOR Hepatomegaly Liver lesion CEA Routine 11/05/2024 1:57 PM DEVELOPMENT AND HOUSING DIRECTOR Hepatomegaly Liver lesion CANCER ANTIGEN 19-9 Routine 11/05/2024 1:57 PM DEVELOPMENT AND HOUSING DIRECTOR Hepatomegaly Liver lesion CA 125 Routine 11/05/2024 1:57 PM DEVELOPMENT AND HOUSING DIRECTOR Hepatomegaly Liver lesion HEPATIC FUNCTION PANEL Routine 11/05/2024 1:57 PM DEVELOPMENT AND HOUSING DIRECTOR Hepatomegaly Liver lesion HEPATITIS PANEL, ACUTE Routine 11/05/2024 1:57 PM DEVELOPMENT AND HOUSING DIRECTOR Hepatomegaly Liver lesion from Last 3 Months Results * MRI Abdomen Liver W WO Contrast (11/14/2024 9:29 AM DEVELOPMENT AND HOUSING DIRECTOR) Anatomical Region Laterality Modality Body N/A Magnetic Resonan ce 11/14/2024 9:45 AM DEVELOPMENT AND HOUSING DIRECTOR Narrative 11/14/2024 10:00 AM DEVELOPMENT AND HOUSING DIRECTOR EXAM DESCRIPTION: MRI ABDOMEN LIVER W WO [...] by Josh Allen.D. NS: NS Report ID: [id number] Reading Location: [id number] Procedure Note Josh Granados MD - 11/14/2024 [...] Josh Granados M.D. NS: NS Report ID: [id number] Reading Location: [place] [address] Saumya NESS IMG MRI PROCEDURES Final Result * Cancer antigen 19-9 (11/05/2024 1:57 PM DEVELOPMENT AND HOUSING DIRECTOR) Pathologist [facility] CA 19-9 ag 19.0 1.0 - 35.0 units/mL Comment: Interpretive Data The Sindi CA 19-9 assay procedure was used. Results from different manufacturers or methods may not be comparable. Serial testing should be performed using the same method. Testing performed by: [facility], [address] [place] [address]., [id number] Blood 11/05/2024 1:57 PM DEVELOPMENT AND HOUSING DIRECTOR 11/05/2024 7:50 PM DEVELOPMENT AND HOUSING DIRECTOR Saumya NESS LAB BLOOD ORDERABLES Fin al Result [facility] [place] 1 [facility] Department [place] [employer] [place] [address] * [id number], Tumor Marker (11/05/2024 1:57 PM DEVELOPMENT AND HOUSING DIRECTOR) Pathologist [facility] alpha Fetoprotein <2.0 <=8.3 ng/mL Comment: Interpretive [...] 2018;57:[id number] Sammie Boothe et al. Clin Chem 2014;[id number]. Current interpretive data was last revised 2022. Testing performed by: [facility], 1 [place]., [address] Blood 11/05/2024 1:57 PM DEVELOPMENT AND HOUSING DIRECTOR 11/05/2024 5:44 PM DEVELOPMENT AND HOUSING DIRECTOR Saumya NESS LAB BLOOD ORDERABLES Fin al Result [facility] ([place]) 1 [facility] [place] [address] * Hepatitis panel, acute Blood (11/05/2024 1:57 PM DEVELOPMENT AND HOUSING DIRECTOR) Hep A IgM Nonreactive Nonreactive Comment: Interpretive Data: If Hep A IgM Ab is reported as Equivocal, a new sample should be drawn in two weeks for testing. Current interpretive data was last revised on 20. Testing performed by: [facility], [address] [place] [address]., [address] Hep B core IgM Nonreactive Nonreactive Erica [facility] ([place]) Comment: Interpretive Data If HepB Core IgM Ab is reported as Equivocal, a new sample should be drawn in two weeks for testing. Current interpretive data was last revised on 20. Testing performed by: [facility], [address] [place] [address]., [id number] Hep C Ab Nonreactive Nonreactive [facility] [...] last revised on 2020. Testing performed by: [facility], [address] [place] [address]., [id number] HepBsAg Nonreactive Nonreactive [facility] ([place]) Comment:Testing performed by : [facility], [address] [place] [address]., [id number] Blood 11/05/2024 1:57 PM DEVELOPMENT AND HOUSING DIRECTOR 11/05/2024 7:50 PM DEVELOPMENT AND HOUSING DIRECTOR Saumya NESS LAB MICROBIOLOGY - GENER AL ORDERABLES Final Result Performing Organization Address [facility] Co de Phone Number [facility] ([place]) 1 [facility] [place] [address] * CA 125 (11/05/2024 1:57 PM DEVELOPMENT AND HOUSING DIRECTOR) CA 125 ag 17.0 1.0 - 35.0 units/mL Comment: Interpretive Data The Sindi CA 125 assay procedure was used. Results from different manufacturers or methods may not be comparable. Serial testing should be performed using the same method. Testing performed by: [address] [address] Blood 11/05/2024 1:57 PM DEVELOPMENT AND HOUSING DIRECTOR 11/05/2024 7:50 PM DEVELOPMENT AND HOUSING DIRECTOR Saumya NESS LAB BLOOD ORDERABLES Fin al Result Performing Organization Address City/[facility] Co de Phone Number [facility] ([place]) 1 [facility] [place] [address] * CEA (11/05/2024 1:57 PM DEVELOPMENT AND HOUSING DIRECTOR) CEA 1.6 0.1 - 5.0 ng/mL Comment: Interpretive Data The Sindi CEA assay procedure was used. Results from different manufacturers or methods may not be comparable. Serial testing should be performed using the same method. Testing performed by: [facility], [address] [place] [address], [place]., [address] Blood 11/05/2024 1:57 PM DEVELOPMENT AND HOUSING DIRECTOR 11/05/2024 7:50 PM DEVELOPMENT AND HOUSING DIRECTOR Saumya NESS LAB BLOOD ORDERABLES Fin al Result Performing Organization Address [facility]/ZIP Co de Phone Number [facility] ([place]) 1 [facility] [place] [place] [address] * Hepatic function panel (11/05/2024 1:57 PM DEVELOPMENT AND HOUSING DIRECTOR) Bilirubin, total 0.3 0.1 - 1.2 mg/dL [...] [facility] ([place]) Blood 11/05/2024 1:57 PM DEVELOPMENT AND HOUSING DIRECTOR 11/05/2024 3:34 PM DEVELOPMENT AND HOUSING DIRECTOR Saumya NESS LAB BLOOD ORDERABLES Fin al Result Performing Organization Address [facility] Co de Phone Number [facility] ([place]) 1 [facility] [place] [address] from Last 3 Months Insurance AETNA [facility] Care Teams Senior Front End Developer Relationship Specialty Start Date End Date Alana Olmos NP [address] [place] [address] PCP - General Nurse Practitioner 02/20/21
--- OUTSIDE RECORDS SUMMARY | 2024-12-26 08:05 | XMS_ITS | Clinical Summary ---
Author Organization [facility] Address [address] [place] [id number] Care Team Providers Care Quality Lab Technician Name Role Phone NickolasBeto kangshelia Genao NP Primary Care Provide r Allergies No known active allergies Medications No known medications Active Problems No known active problems Encounters Date Type Department Care Team Description 11/20/2024 Telephone [facility] Gastroenterology at [address] [place] [address] Kate Huddleston MA 11/14/2024 8:43 AM DYE HOUSE WHEEL OPERATOR - 11/14/2024 11:59 PM DYE HOUSE WHEEL OPERATOR Hospital Encounter [facility] [address] [place] [address] Liver lesion; Hepatomegaly Discharge Disposition: Discharge to home or self care 11/06/2024 Telephone [facility] Gastroenterology at [address] [place] [address] Kate Huddleston MA 11/05/2024 2:30 PM DYE HOUSE WHEEL OPERATOR Lab [address] Hepatomegaly; Liver lesion 11/05/2024 1:45 PM DYE HOUSE WHEEL OPERATOR Office Visit [facility] Gastroenterology at [address] [place] [address] Saumya Craft PA Liver lesion (Primary Dx); [...] Comments Blood Pressure 130/87 11/05/2024 1:14 PM DYE HOUSE WHEEL OPERATOR Pulse 81 11/05/2024 1:14 PM DYE HOUSE WHEEL OPERATOR Temperature - - Respiratory Rate - - Oxygen Saturation 97% 11/05/2024 1:14 PM DYE HOUSE WHEEL OPERATOR Inhaled Oxygen Concentration - - Weight 88 kg (194 lb) 11/05/2024 1:14 PM DYE HOUSE WHEEL OPERATOR Height - - Body Mass Index - [...] lives out of area) 11/14/2024 9:29 AM DYE HOUSE WHEEL OPERATOR Liver lesion Hepatomegaly [id number] IN, TUMOR MARKER Routine 11/05/2024 1:57 PM DYE HOUSE WHEEL OPERATOR Hepatomegaly Liver lesion CEA Routine 11/05/2024 1:57 PM DYE HOUSE WHEEL OPERATOR Hepatomegaly Liver lesion CANCER ANTIGEN 19-9 Routine 11/05/2024 1:57 PM DYE HOUSE WHEEL OPERATOR Hepatomegaly Liver lesion CA 125 Routine 11/05/2024 1:57 PM DYE HOUSE WHEEL OPERATOR Hepatomegaly Liver lesion HEPATIC FUNCTION PANEL Routine 11/05/2024 1:57 PM DYE HOUSE WHEEL OPERATOR Hepatomegaly Liver lesion HEPATITIS PANEL, ACUTE Routine 11/05/2024 1:57 PM DYE HOUSE WHEEL OPERATOR Hepatomegaly Liver lesion from Last 3 Months Results * MRI Abdomen Liver W WO Contrast (11/14/2024 9:29 AM DYE HOUSE WHEEL OPERATOR) Anatomical Region Laterality Modality Body N/A Magnetic Resonan ce 11/14/2024 9:45 AM DYE HOUSE WHEEL OPERATOR Narrative 11/14/2024 10:00 AM DYE HOUSE WHEEL OPERATOR EXAM DESCRIPTION: MRI ABDOMEN LIVER W WO [...] Josh Granados M.D. NS: NS Report ID: [id number] Reading Location: [id number] Procedure Note Josh Granados MD - 11/14/2024 [...] Josh Granados M.D. NS: NS Report ID: [id number] Reading Location: [place] [address] [place] Saumya NESS IMG MRI PROCEDURES Final Result * Cancer antigen 19-9 (11/05/2024 1:57 PM DYE HOUSE WHEEL OPERATOR) CA 19-9 ag 19.0 1.0 - 35.0 units/mL Comment: Interpretive Data The Sindi CA 19-9 assay procedure was used. Results from different manufacturers or methods may not be comparable. Serial testing should be performed using the same method. Testing performed by: [facility], [address] [place] [address]., [id number] Blood 11/05/2024 1:57 PM DYE HOUSE WHEEL OPERATOR 11/05/2024 7:50 PM DYE HOUSE WHEEL OPERATOR us Saumya NESS LAB BLOOD ORDERABLES Fin al Result Performing Organization Address [facility] de Phone Number [facility] ([place]) 1 [facility] [place] [address] * [id number], Tumor Marker (11/05/2024 1:57 PM DYE HOUSE WHEEL OPERATOR) alpha Fetoprotein <2.0 <=8.3 ng/mL Comment: Interpretive [...] 2018;[id number] Sammie Boothe et al. Clin Chem 2014;[id number]. Current interpretive data was last revised 2022. Testing performed by: [facility], [address] [place] [address]., [id number] Blood 11/05/2024 1:57 PM DYE HOUSE WHEEL OPERATOR 11/05/2024 5:44 PM DYE HOUSE WHEEL OPERATOR Saumya NESS LAB BLOOD ORDERABLES Fin al Result Performing Organization Address City/[facility] Co de Phone Number [facility] ([place]) 1 [facility] [place] [address] * Hepatitis panel, acute Blood (11/05/2024 1:57 PM DYE HOUSE WHEEL OPERATOR) Pathologist [facility] Hep A IgM Nonreactive Nonreactive Comment: Interpretive Data: If Hep A IgM Ab is reported as Equivocal, a new sample should be drawn in two weeks for testing. Current interpretive data was last revised on 20. Testing performed by: [facility], [address] [place] [address]., [id number] Hep B core IgM Nonreactive Nonreactive C AYLIN [facility] ([place]) Comment: Interpretive Data If HepB Core IgM Ab is reported as Equivocal, a new sample should be drawn in two weeks for testing. Current interpretive data was last revised on 20. Testing performed by: [facility], [address] [place] [address]., [id number] Hep C Ab Nonreactive Nonreactive [facility] [...] last revised on 2020. Testing performed by: [facility], [address] [place] [address]., [id number] HepBsAg Nonreactive Nonreactive [facility]GER [facility] ([place]) Comment:Testing performed by : [address] [id number] Blood 11/05/2024 1:57 PM DYE HOUSE WHEEL OPERATOR 11/05/2024 7:50 PM DYE HOUSE WHEEL OPERATOR Saumya NESS LAB MICROBIOLOGY - GENER AL ORDERABLES Final Result [facility] ([place]) 1 [facility] Department [place] [address] * CA 125 (11/05/2024 1:57 PM DYE HOUSE WHEEL OPERATOR) CA 125 ag 17.0 1.0 - 35.0 units/mL Comment: Interpretive Data The Sindi CA 125 assay procedure was used. Results from different manufacturers or methods may not be comparable. Serial testing should be performed using the same method. Testing performed by: [address] [address] Blood 11/05/2024 1:57 PM DYE HOUSE WHEEL OPERATOR 11/05/2024 7:50 PM DYE HOUSE WHEEL OPERATOR Saumya NESS LAB BLOOD ORDERABLES Fin al Result Performing Organization Address [facility] de Phone Number RODGER [facility] ([place]) 1 [facility] [place] [address] * CEA (11/05/2024 1:57 PM DYE HOUSE WHEEL OPERATOR) Pathologist [facility] CEA 1.6 0.1 - 5.0 ng/mL Comment: Interpretive Data The Sinid CEA assay procedure was used. Results from different manufacturers or methods may not be comparable. Serial testing should be performed using the same method. Testing performed by: [facility], [address] [place] [address]., [id number] Blood 11/05/2024 1:57 PM DYE HOUSE WHEEL OPERATOR 11/05/2024 7:50 PM DYE HOUSE WHEEL OPERATOR Saumya NESS LAB BLOOD ORDERABLES Fin al Result Performing Organization Address [facility] de Phone Number RODGER [facility] ([place]) 1 [facility] [place] [address] * Hepatic function panel (11/05/2024 1:57 PM DYE HOUSE WHEEL OPERATOR) Pathologist [facility] Bilirubin, total 0.3 0.1 - 1.2 mg/dL [...] [facility] ([place]) Blood 11/05/2024 1:57 PM DYE HOUSE WHEEL OPERATOR 11/05/2024 3:34 PM DYE HOUSE WHEEL OPERATOR Saumya NESS LAB BLOOD ORDERABLES Fin al Result Performing Organization Address [facility] Co de Phone Number R[facility]GER [facility] ([place]) 1 [facility] [place] [address] from Last 3 Months Insurance [employer] [facility] Care Teams Quality Lab Technician Relationship Specialty Start Date End Date Alana Olmos NP [address] [place] [address] PCP - General Nurse Practitioner 02/20/21
== END 2024-12-26 07:54 | disposition home or self-care (01) ==
PROVIDERS: PCP Nurse Practitioner Family; Visit Provider Nurse Practitioner Family
DX: N63.10 Unspecified lump in the right breast, unspecified quadrant (principal); R92.8 Other abnormal and inconclusive findings on diagnostic imaging of breast
CPT/HCPCS: 19000; 76942; 88108; 88305